=== PATIENT | male | born 1960 | race Caucasian/White ===

== ENCOUNTER 2017-01-04 09:33 | Inpatient (IN) | payer BC, MEDICARE ==
--- NOTE | 2017-01-02 15:45 | Pre-op HX & Phy Repo 2 SIG ---
DATE OF ADMISSION: 01/04/2017 HISTORY OF PRESENT ILLNESS: The patient is a 56-year-old male, in overall good health with a malfunctioning conventional Michelle ileostomy with recurring episodes of small-bowel obstruction and severe difficulty maintaining a seal with his appliance. The patient has a past history of ulcerative colitis and in 1992, underwent proctocolectomy with ileostomy with finding of carcinoma. In 1994, he underwent conversion to a Cadena type of Kock pouch continent ileostomy and has had several revisions. 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 At surgery on 02/02/2016, he was found to have severe extensive adhesions with a chronically severely inflamed pouch with surgery requiring 2 hours just for lysis of adhesions. He underwent resection of his pouch with segmental small bowel resection and creation of a conventional ileostomy. The duration of the operation was approximately 5-1/2 hours. The patient following surgery initially did well, able to keep an appliance on for days, but then he had retraction of the superior margin of the stoma and has been hospitalized four times for small bowel obstruction. CT scans and small-bowel series have revealed obstruction very close to the stoma itself, possibly at the level of the abdominal wall just under it. 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 He rarely is able to keep the bag on for several days in a row, but often has to change it multiple times in the same day. He is scheduled to undergo laparotomy with either revision of his ileostomy and possible relocation or takedown of the ileostomy and creation of another Cadena continent ileostomy. OPERATIONS: In addition to the above, he has had surgery for fracture of the spine. MEDICATIONS: Nexium 20 mg daily. ALLERGIES: Penicillin. PHYSICAL EXAMINATION: He is 6 feet 1 inch, 213 pounds. He is arriving from out of town and will be examined upon arrival and dictated separately. IMPRESSION: 1. Malfunctioning ileostomy with retraction and recurring episodes of small-bowel obstruction. 2. History of ulcerative colitis. 3. Status post multiple abdominal operations. 3.1. Proctocolectomy and Michelle ileostomy including resection of carcinoma in 1992. 3.2. Cadena continent ileostomy in 1994. 3.3. Repair of Cadena pouch slipped valve in 1994. 3.4. Repair of Cadena pouch stoma stricture in 1994. 3.5. Repair of Cadena pouch slipped valve in 1998. 3.6. Repair of Cadena pouch slipped valve in 2006. 3.7. Laparotomy with extensive lysis of adhesions and resection of Cadena pouch and segmental small bowel resection and creation of Michelle ileostomy 02/02/2016. DISCUSSION: The patient will be admitted to undergo insertion of a dual lumen PICC line, intravenous hydration during a bowel prep, preoperative intravenous antibiotics, and subcutaneous heparin. He will undergo laparotomy with either revision of his ileostomy and possible relocation, or creation of a new Cadena pouch. I have had a full discussion with the patient, which I will repeat when he arrives from out of town regarding his condition, his options, and the risks of surgery including bleeding, infection, injury to adjacent structures or organs, recurrent difficulties with conventional ileostomy or continent ileostomy, etc. Eber Hawkins M.D. DR: RAMONITA JOB#: [id number] CC: MARC
[~2017-01-04] VITALS: Ht 182.9 cm; Wt 97.5 kg
[~2017-01-04 09:33] MED LIST: NEXIUM40 MG ORAL
[2017-01-04 10:00] VITALS: BP 126/92
[2017-01-04] MEDS ORDERED: Zolpidem 5mg tab ORAL PRN (10:15)
--- NOTE | 2017-01-04 11:00 | General Progress Note ---
Progress Note Progress Note H&P dictated. Weight 213 lbs - stable. Full discussion re options of revision of existing conventional ileostomy and release of recurring obstructions, vs. creation of another Cadena Continent Ileostomy BCIR pouchj. Plan: Surgery in AM Bowel prep, PIC line, IV hydration, IV antibiotics, SQ heparin ORI SEVERINO Jan 04, 2017 11:00
[2017-01-04 11:15] LABS: BASOPHILS % (AUTO) 1.6 % (0.0-2.0); EOSINOPHILS % (AUTO) 1.5 % (0.0-3.0); MEAN CORPUSCULAR HEMOGLOBIN 28.5 PG (27.0-31.0); MEAN CORPUSCULAR HGB CONC 31.3 G/DL (32.0-36.0); MEAN CORPUSCULAR VOLUME 91 FL (80-99); MEAN PLATELET VOLUME 7.6 FL (6.5-10.1); MONOCYTES % (AUTO) 8.8 % (1.0-10.0); NEUTROPHILS % (AUTO) 74.1 % (45.0-75.0); PLATELET COUNT 185 K/UL (150-450); RED BLOOD COUNT 5.57 M/UL (4.70-6.10); RED CELL DISTRIBUTION WIDTH 11.4 % (11.6-14.8); WHITE BLOOD COUNT 7.4 K/UL (4.8-10.8)
[2017-01-04 11:25] LABS: INR 0.9 (0.9-1.1); PROTHROMBIN TIME 9.9 SEC (9.30-11.50)
[2017-01-04 11:33] LABS: ALANINE AMINOTRANSFERASE 104 U/L (12-78); ALBUMIN/GLOBULIN RATIO 0.8 (1.0-2.7); ANION GAP 8 mmol/L (5-15); ASPARTATE AMINO TRANSFERASE 70 U/L (15-37); CALCIUM 8.9 MG/DL (8.5-10.1); CARBON DIOXIDE 26 MMOL/L (21-32); CHLORIDE 105 MMOL/L (98-107); CREATININE 1.3 MG/DL (0.55-1.30); GLOMERULAR FILTRATION RATE 57.1 mL/min (>60); POTASSIUM 4.1 MMOL/L (3.5-5.1); SODIUM 139 MMOL/L (136-145); TOTAL PROTEIN 8.3 G/DL (6.4-8.2)
--- NOTE | 2017-01-04 11:41 | Diagnostic Imaging Report ---
Indication: Dyspnea Comparison: None A single view chest radiograph was obtained. Findings: Cardiomediastinal appearance is within normal limits for age. Pulmonary vascularity is appropriate. The diaphragmatic contour is smooth and costophrenic angles are sharp. No pleural effusions are identified. The bones are unremarkable. Impression: No acute findings
[2017-01-04 11:47] LABS: FERRITIN 88 NG/ML (8-388)
[2017-01-04 12:00] VITALS: BP 150/87
[2017-01-04 12:02] LABS: IRON 68 ug/dL (50-175); TOTAL IRON BINDING CAPACITY 448 ug/dL (250-450)
[2017-01-04] MEDS: Neomycin Sulfate 500mg Tab ORAL SCH ×3 (12:03→21:30)
[2017-01-04] MEDS ORDERED: D5 1/2NS w/KCl 20mEq 1,000 ML IV SCH (12:30)
[2017-01-04] MEDS ORDERED: Heparin 2000 units/Ns 1000ml INJ ONE (13:00)
[2017-01-04] MEDS ORDERED: Vitamin B12 1000mcg/ml Inj IM ONE (13:00)
[2017-01-04] MEDS ORDERED: Lidocaine 1% Plain 30 ml INJ ONE (13:00)
--- NOTE | 2017-01-04 13:36 | Anethesia Preoperative Eval ---
Anesthesia Pre-op PMH/ROS General Date of Evaluation: Jan 04, 2017 Time of Evaluation: 13:32 Anesthesiologist: Lary ASA Score: ASA 3 Mallampati Score Class I : Soft palate, uvula, fauces, pillars visible Class II: Soft palate, uvula, fauces visible Class III: Soft palate, base of uvula visible Class IV: Only hard plate visible Mallampati Classification: Class I Surgeon: Shruthi Diagnosis: Malfxn Cadena Continent Ileostomy Surgical Procedure: Revision Cadena Coninent Ileostomy Anesthesia History: none Family History: no anesthesia problems Allergies: Coded Allergies: PENICILLINS (Verified Allergy, Intermediate, ITCH, 08/01/12) Medications: see eMAR Past Medical History Cardiovascular: Reports: HTN Gastrointestinal/Genitourinary: Reports: other - Ucerative Colitis Hematology/Immune: Reports: other - Colorectal CA 91 Musculoskeletal/Integumentary: Reports: other - Spine FX 98, [facility] PSxH Narrative: 1. Malfunctioning ileostomy with retraction and recurring episodes of small-bowel obstruction. 2. History of ulcerative colitis. 3. Status post multiple abdominal operations. 3.1. Proctocolectomy and Michelle ileostomy including resection of carcinoma in 1992. 3.2. Cadena continent ileostomy in 1994. 3.3. Repair of Cadena pouch slipped valve in 1994. 3.4. Repair of Cadena pouch stoma stricture in 1994. 3.5. Repair of Cadena pouch slipped valve in 1998. 3.6. Repair of Cadena pouch slipped valve in 2006. 3.7. Laparotomy with extensive lysis of adhesions and resection of Cadena pouch and segmental small bowel resection and creation of Michelle ileostomy 02/02/2016. Anesthesia Pre-op Phys. Exam Physician Exam Last Vital Signs Date Time Temp Pulse Resp B/P (MAP) Pulse Ox O2 Delivery O2 Flow Rate FiO2 01/04/17 12:00 97.7 76 20 150/87 98 Room Air Constitutional: NAD Neurologic: CN 2-12 intact Cardiovascular: RRR Respiratory: CTA Gastrointestinal: S/NT/ND Airway Exam Mallampati Score: Class II MO: full ROM: full Teeth: intact Anesthesia Pre-op A/P Labs Hematology Test 01/04/17 10:45 White Blood Count 7.4 K/UL (4.8-10.8) Red Blood Count 5.57 M/UL (4.70-6.10) Hemoglobin 15.9 G/DL (14.2-18.0) Hematocrit 50.9 % (42.0-52.0) Mean Corpuscular Volume 91 FL (80-99) Mean Corpuscular Hemoglobin 28.5 PG (27.0-31.0) Mean Corpuscular Hemoglobin Concent 31.3 G/DL (32.0-36.0) L Red Cell Distribution Width 11.4 % (11.6-14.8) L Platelet Count 185 K/UL (150-450) Mean Platelet Volume 7.6 FL (6.5-10.1) Neutrophils (%) (Auto) 74.1 % (45.0-75.0) Lymphocytes (%) (Auto) 14.0 % (20.0-45.0) L Monocytes (%) (Auto) 8.8 % (1.0-10.0) Eosinophils (%) (Auto) 1.5 % (0.0-3.0) Basophils (%) (Auto) 1.6 % (0.0-2.0) Coagulation Test 01/04/17 10:45 Prothrombin Time 9.9 SEC (9.30-11.50) Prothromb Time International Ratio 0.9 (0.9-1.1) Activated Partial Thromboplast Time 28 SEC (23-33) Chemistry Test 01/04/17 10:45 Sodium Level 139 MMOL/L (136-145) Potassium Level 4.1 MMOL/L (3.5-5.1) Chloride Level 105 MMOL/L (98-107) Carbon Dioxide Level 26 MMOL/L (21-32) Anion Gap 8 mmol/L (5-15) Blood Urea Nitrogen 14 mg/dL (7-18) Creatinine 1.3 MG/DL (0.55-1.30) Estimat Glomerular Filtration Rate 57.1 mL/min (>60) Glucose Level 107 MG/DL (74-106) H Calcium Level 8.9 MG/DL (8.5-10.1) Iron Level 68 ug/dL (50-175) Total Iron Binding Capacity 448 ug/dL (250-450) Percent Iron Saturation 15 % (15-50) Unsaturated Iron Binding 380 ug/dL (112-346) H Ferritin 88 NG/ML (8-388) Total Bilirubin 0.4 MG/DL (0.2-1.0) Aspartate Amino Transf (AST/SGOT) 70 U/L (15-37) H Alanine Aminotransferase (ALT/SGPT) 104 U/L (12-78) H Alkaline Phosphatase 124 U/L (46-116) H Total Protein 8.3 G/DL (6.4-8.2) H Albumin 3.7 G/DL (3.4-5.0) Globulin 4.6 g/dL Albumin/Globulin Ratio 0.8 (1.0-2.7) L Vitamin B12 Level 189 PG/ML (193-986) L Risk Assessment & Plan Assessment: ASA 3 Plan: GA Status Change Before Surgery: No Pre-Antibiotics Drug: Arnaud Dyer MD Jan 04, 2017 13:36
[2017-01-04 14:06] LABS: APPEARANCE,URINE CLEAR; KETONES,URINE NEGATIVE (NEGATIVE); LEUKOCYTE ESTERASE ,URINE 1+ (NEGATIVE); NITRITE,URINE NEGATIVE (NEGATIVE); PH,URINE 5 (4.5-8.0); PROTEIN,URINE NEGATIVE (NEGATIVE); UROBILINOGEN,URINE NORMAL MG/DL (0.0-1.0)
[2017-01-04 14:16] LABS: BACTERIA,URINE OCCASIONAL /HPF; RBC,URINE 0-2 /HPF (0 - 0)
[2017-01-04 16:00] VITALS: BP 105/77
[2017-01-04] MEDS: D5 1/2NS w/KCl 20mEq 1,000 ML IV SCH (17:55)
--- NOTE | 2017-01-04 19:00 | Pre-op HX & Phy Repo 2 SIG ---
DATE OF ADMISSION: 01/04/2017 HISTORY: The patient has now arrived from out of town. Please see previously dictated history. PHYSICAL EXAMINATION: GENERAL: He is well developed and well nourished, in no distress. He is 6 foot 1 inch, 213 pounds. HEENT: Within normal limits. LUNGS: Clear. HEART: Regular rhythm. BREASTS: Without masses. ABDOMEN: Soft. He has a long midline scar from epigastrium to the pubis. The conventional Michelle ileostomy is high in the right lower quadrant and retracted with inflammation of the pushpa-stomal skin GENITOURINARY: Testes and scrotum within normal limits. RECTAL: Status post proctectomy. EXTREMITIES: Without edema. Pulses 3+ femoral to pedal bilateral NEUROLOGIC: Physiologic. IMPRESSION: 1. Malfunctioning ileostomy with retraction and recurring episodes of small-bowel obstruction. 2. History of ulcerative colitis. 3. Status post multiple abdominal operations. 3.1. Proctocolectomy and Michelle ileostomy including resection of colon carcinoma in 1992. 3.2. Cadena continent ileostomy in 1994. 3.3. Repair of Cadena pouch slipped valve in 1994. 3.4. Repair of Cadena pouch stoma stricture in 1994. 3.5. Repair of Cadena pouch slipped valve in 1998. 3.6. Repair of Cadena pouch slipped valve in 2006. 3.7. Laparotomy with extensive lysis of adhesions and resection of failed Cadena pouch and segmental small bowel resection and creation of Michelle ileostomy January 2016 DISCUSSION: I have had a full discussion with the patient regarding the nature of his condition of malfunctioning conventional ileostomy and recurrent small bowel obstruction with diagnostic studies revealing the site of obstruction to be at or very near to the ileostomy itself. The patient understands. He will undergo laparotomy with either revision and possible relocation of the ileostomy or takedown of the ileostomy and creation of another Cadena continent ileostomy. I have discussed the indications to perform the pouch including an adequate amount of small bowel and normal small bowel. I have discussed the risks of surgery including bleeding, infection, injury to adjacent structures or organs, recurrent difficulties with either the conventional ileostomy or with the Cadena pouch and all questions have been answered. He understands and agrees to proceed. Eber Hawkins M.D. DR: ELEAZAR JOB#: [id number] CC: MARC
[2017-01-04 20:00] VITALS: BP 120/77
[2017-01-04] MEDS: Pantoprazole Inj IVP SCH (21:30)
[2017-01-05] VITALS (18 sets, daily range): BP systolic 123–150; BP diastolic 68–96
[2017-01-05] MEDS: D5 1/2NS w/KCl 20mEq 1,000 ML IV SCH (04:04)
[2017-01-05] MEDS ORDERED: Heparin 5000 units/ml inj SUBQ ONE (08:00)
[2017-01-05] MEDS: Pantoprazole Inj IVP SCH (08:24)
--- NOTE | 2017-01-05 08:46 | General Progress Note ---
Progress Note Progress Note Hgb 15.9 Ferritin 88(8-388) Iron 68 (50-175) B12 189 (193-986) Imp. Vitamin B12 deficiency Low normal serum iron and ferritin Plan: 1000mcg Vitamin B12 given IM ORI SEVERINO Jan 05, 2017 08:46
--- NOTE | 2017-01-05 08:48 | Pre-Procedure Note/Attestation ---
Pre-Procedure Note/Attestation Complete Prior to Procedure Planned Procedure: not applicable Procedure Narrative: laparotomy with revision of ileostomy, possible Cadena Continent Ileostomy Indications for Procedure Pre-Operative Diagnosis: retracted Michelle ileostomy and recurring small bowel obstruction Attestation I attest that I discussed the nature of the procedure; its benefits; risks and complications; and alternatives (and the risks and benefits of such alternatives ), prior to the procedure, with the patient (or the patient's legal screening representative). I attest that, if there was a reasonable possibility of needing a blood transfusion, the patient (or the patient's legal screening representative) was given the [facility] standardized written summary, pursuant to the [place] Blood Safety Act ([place] Health and Safety Code # 1645, as amended). I attest that I re-evaluated the patient just prior to the surgery and that there has been no change in the patient's H&P, except as documented below:none ORI SEVERINO Jan 05, 2017 08:48
[2017-01-05] MEDS ORDERED: Succinylcholine 20mg/ml 10ml vial ONE (09:45)
[2017-01-05] MEDS ORDERED: Sterile Water Irrig 1000ml IRRIG ONE (09:45)
[2017-01-05] MEDS ORDERED: Midazolam 2mg/2ml Inj ONE (09:45)
[2017-01-05] MEDS ORDERED: Morphine Sulfate 10mg/ml Inj ONE (09:45)
[2017-01-05] MEDS ORDERED: Propofol 200mg/20ml IV ONE (09:45)
[2017-01-05] MEDS ORDERED: NS Irrig 1000ml ONE (09:45)
[2017-01-05] MEDS ORDERED: fentaNYL 100 mcg/2 mL IV ONE (09:45)
[2017-01-05] MEDS ORDERED: Ketorolac 30mg Inj ONE (09:45)
[2017-01-05] MEDS ORDERED: Metoclopramide 10mg/2ml Inj ONE (09:45)
[2017-01-05] MEDS ORDERED: Glycopyrrolate 0.2mg/ml 1ml Vial ONE (09:45)
[2017-01-05] MEDS ORDERED: LR 1000ml ONE (09:45)
[2017-01-05] MEDS ORDERED: LR 1000ml 1,000 ML IVLG SCH (10:11)
[2017-01-05] MEDS ORDERED: Metoclopramide 10mg/2ml Inj IVP PRN (10:15)
[2017-01-05] MEDS ORDERED: DiphenhydrAMINE 50mg/ml Inj IVP PRN (10:15)
[2017-01-05] MEDS ORDERED: Ketorolac 30mg Inj IV PRN ×2 (10:15→15:30)
[2017-01-05] MEDS ORDERED: fentaNYL 100 mcg/2 mL IV PRN (10:15)
[2017-01-05] MEDS ORDERED: Midazolam 2mg/2ml Inj IVP PRN (10:15)
[2017-01-05] MEDS ORDERED: Acetaminophen (Non formulary) 100 ML IV ONE (10:30)
[2017-01-05] MEDS ORDERED: Zemuron 50mg/5ml Inj IV ONE (11:20)
[2017-01-05] MEDS ORDERED: Bacitracin 50000 Units Vial ONE (11:20)
--- NOTE | 2017-01-05 13:08 | Anethesia Preoperative Eval ---
Anesthesia Pre-op PMH/ROS General Date of Evaluation: Jan 05, 2017 Time of Evaluation: 09:45 Anesthesiologist: ADOLFO ASA Score: ASA 2 Mallampati Score Class I : Soft palate, uvula, fauces, pillars visible Class II: Soft palate, uvula, fauces visible Class III: Soft palate, base of uvula visible Class IV: Only hard plate visible Mallampati Classification: Class II Surgeon: Shruthi Diagnosis: non functioning ileostomy Surgical Procedure: EX-LAP Anesthesia History: none Allergies: Coded Allergies: PENICILLINS (Verified Allergy, Intermediate, ITCH, 08/01/12) Medications: see eMAR Anesthesia Pre-op Phys. Exam Physician Exam Last Vital Signs Date Time Temp Pulse Resp B/P (MAP) Pulse Ox O2 Delivery O2 Flow Rate FiO2 01/05/17 08:00 98.3 74 20 125/74 100 Room Air Constitutional: NAD Neurologic: CN 2-12 intact Cardiovascular: RRR Respiratory: CTA Gastrointestinal: S/NT/ND Airway Exam Mallampati Score: Class II MO: full ROM: full Teeth: intact Anesthesia Pre-op A/P Risk Assessment & Plan Plan: GA Pre-Antibiotics Given Within 1 Hr of Incision: Darwin Carmichael M.D. Jan 05, 2017 13:08
--- NOTE | 2017-01-05 13:10 | Immediate Post-Op Evaluation ---
Immediate Post-Op Evalulation Immediate Post-Op Evalulation Procedure: EXLAP Date of Evaluation: Jan 05, 2017 Time of Evaluation: 15:00 IV Fluids: 1000 Blood Products: 0 Estimated Blood Loss: 0 Urinary Output: 0 Blood Pressure Systolic: 118 Blood Pressure Diastolic: 63 Pulse Rate: 78 Respiratory Rate: 15 O2 Sat by Pulse Oximetry: 99 Temperature (Fahrenheit): 98 Pain Score (1-10): 0 Nausea: No Vomiting: No Patient Status: awake, reacts, patent, extubated Hydration Status: adequate Given Within 1 Hr of Incision: Darwin Carmichael M.D. Jan 05, 2017 13:10
--- NOTE | 2017-01-05 13:11 | 48 Hour Post Anesthesia Eval ---
Post Anesthesia Evaluation Procedure: EXLAP Date of Evaluation: Jan 07, 2017 Time of Evaluation: 08:00 Blood Pressure Systolic: 123 0: 65 Pulse Rate: 71 Respiratory Rate: 16 Temperature (Fahrenheit): 98 O2 Sat by Pulse Oximetry: 99 Airway: patent Nausea: No Vomiting: No Hydration Status: adequate Mental Status/LOC: patient returned to baseline Follow-up care needed: patient intructions given Darwin Freeman M.D. Jan 05, 2017 13:11
[2017-01-05] MEDS ORDERED: Surgicel 4in x 8in TOPIC ONE ×2 (13:37→14:47)
--- NOTE | 2017-01-05 13:51 | Diagnostic Imaging Report ---
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 The right upper extremity was prepped with alcohol. All elements of maximal sterile barrier technique were followed including usage of a cap, mask, sterile gown, sterile gloves, hand hygiene and a large sterile sheet. Sonographic evaluation of the upper extremity was performed demonstrating a patent and compressible basilic vein. Access was obtained under real-time ultrasound guidance (with utilization of sterile gel and sterile probe cover) and digital image was saved and archived. An .018 wire was introduced. Needle exchanged for a 5 Panamanian peel-away sheath. Measurements were obtained. A 5 Panamanian dual-lumen Power PICC line catheter was cut to 40 cm and introduced over the wire. Peel-away sheath and wire were removed.Catheter was secured to the skin using 2-0 Prolene suture. Both ports aspirate and flush easily. Fluoroscopic Images show distal tip in the superior vena cava. Total fluoroscopic time 0.3 minutes. Impression: Successful placement of an upper extremity PICC line catheter
[2017-01-05] MEDS ORDERED: Naloxone 0.4mg/ml Inj IVP PRN (15:30)
[2017-01-05] MEDS ORDERED: PCA HYDROmorphone 1mg/ml 30 ML IV PRN (15:30)
[2017-01-05] MEDS ORDERED: Rate Change PCA 1 Each MISC PRN (15:30)
[2017-01-05] MEDS ORDERED: LORazepam 1mg tab SL PRN (15:30)
[2017-01-05] MEDS ORDERED: Acetaminophen 650mg/20.3ml GT PRN (15:30)
--- NOTE | 2017-01-05 15:31 | Brief Operative Note ---
Immediate Post Operative Note Operative Note Pre-op Diagnosis: retracted Michelle ileostomy and recurring small bowel obstruction Procedure: laparotomy with resection and relocation of Michelle ileostomy and enteroenterostomy Post-op Diagnosis: same Post-op Diagnosis: same as pre-op Findings: consistent w/pre-op dx studies Surgeon: dianne Insurance Agent: brian Anesthesiologist: long Anesthesia: general Specimen: yes - ileostomy and small bowel segment Complications: none Condition: stable Fluids: see anesthesia record Estimated Blood Loss: volume - 100ml Drains: none Implant(s) used?: No ORI SEVERINO Jan 05, 2017 15:31
[2017-01-05] MEDS: Hydromorphone 0.5mg/0.5ml inj IVP PRN ×2 (15:51→16:09)
[2017-01-05] MEDS ORDERED: PCA Education Pamphlet MISC ONE (17:00)
[2017-01-05] MEDS ORDERED: DiphenhydrAMINE 50mg/ml Inj IVP ONE (17:00)
[2017-01-05] MEDS: PCA shift volume MISC SCH (19:00)
[2017-01-05] MEDS: D5 1/4NS w/KCl 20mEq 1,000 ML IV SCH (20:00)
[2017-01-05] MEDS: DiphenhydrAMINE 50mg/ml Inj IVP PRN (22:54)
[2017-01-06 00:22] VITALS: BP 125/80
--- NOTE | 2017-01-06 02:15 | Operative Note - Dictated ---
DATE OF OPERATION: 01/05/2017 SURGEON: Eber Hawkins M.D. PASTRY COOK SURGEON: Lorenzo Ward M.D. ANESTHESIOLOGIST: Darwin Freeman M.D. TYPE OF ANESTHESIA: General endotracheal. PREOPERATIVE DIAGNOSES: 1. Ileostomy retraction and recurring episodes of small bowel obstruction 2. History of ulcerative colitis. 3. Status post multiple abdominal operations. 3.1. Proctocolectomy and Michelle ileostomy including resection of colon cancer in 1992. 3.2. Cadena continent ileostomy in 1994. 3.3. Repair of Cadena continent ileostomy slipped valve in 1994. 3.4. Repair of Cadena pouch stoma stricture in 1994. 3.5. Repair of Cadena pouch slipped valve in 1998. 3.6. Repair of Cadena pouch slipped valve in 2006. 3.7. Laparotomy with extensive lysis of adhesions and resection of failed Cadena pouch with segmental small bowel resection and creation of Michelle ileostomy January 2016 POSTOPERATIVE DIAGNOSES: 1. Ileostomy retraction and recurring episodes of small bowel obstruction 2. History of ulcerative colitis. 3. Status post multiple abdominal operations. 3.1. Proctocolectomy and Michelle ileostomy including resection of colon cancer in 1992. 3.2. Cadena continent ileostomy in 1994. 3.3. Repair of [place] continent ileostomy slipped valve in 1994. 3.4. Repair of Cadena pouch stoma stricture in 1994. 3.5. Repair of Cadena pouch slipped valve in 1998. 3.6. Repair of Cadena pouch slipped valve in 2006. 3.7. Laparotomy with extensive lysis of adhesions and resection of failed Cadena pouch with segmental small bowel resection and creation of Michelle ileostomy January 2016 OPERATION PERFORMED: 1. Takedown, excision and relocation of ileostomy to the left side of abdomen 2. Enteroenterostomy. DESCRIPTION OF PROCEDURE: The patient was taken to the operating room and under general endotracheal anesthesia with sequential compression device stockings and Goddard catheter in place and having received preoperative intravenous antibiotics and subcutaneous heparin, the patient was prepped and draped in the usual fashion. Initially, the stoma in the right side of the abdomen was covered with antibiotic soaked lap sponge. It was retracted along the superior margin and the peristomal skin was severely irritated. Previous midline incision was reopened from the upper epigastrium to the pubis. There were severe diffuse adhesions throughout the abdominal cavity and a prolonged lysis of adhesions was performed. The ligament of Treitz was identified and the bowel was traced to the ileostomy segment. There was no obstruction at the ileostomy itself, but approximately 2 feet proximal there was a narrowed area and 6 inches proximal to that another severely narrowed area. I introduced a 28-Wolof Goddard through the ileostomy and was able to manipulate it through the most distal narrowing, but not the most proximal. The stoma itself was dismantled with a transversely oriented elliptical incision bringing it into the abdominal cavity. In order to relieve any possible future obstruction from the narrowed areas, I placed the bowel loops side by side just proximal to the most proximal narrowed area and just distal to the most distal area and with two enterotomies and the REA 75, I did an enteroenterostomy. The enterotomy was closed with a linear stapler 60. This would prevent any further obstruction. I considered making another Cadena continent ileostomy, but the mesentery was so thick and there was so much scarring and shortening of the mesentery, it would not be possible to create a pouch with an intussuscepted nipple valve. Accordingly at an appropriate location in the upper portion of the left lower quadrant, I excised a circular disk of skin and with a cruciate incision in the fascia made a generous three fingerbreadth abdominal wall hiatus. I had to resect another segment of bowel near the ileostomy in order to have a mobile loop of bowel that could be brought out as an end ileostomy. Mesentery was divided throughout the procedure and ligated with 2-0 and #0 silk and then the ilium brought through the abdominal wall. It was somewhat dusky and I brought it back into the abdomen and did additional mobilization and brought a longer segment up and matured in a typical Michelle ileostomy with interrupted 2-0 chromic sutures. A very nice nipple bud was created. Most of it appeared viable and perfused and one area appeared somewhat congested, but not ischemic. The entire abdomen was inspected and hemostasis secured and no retained objects were identified. I decided not to do a decompressive catheter gastrostomy because additional dissection would be required and there were no anastomoses to protect. Throughout the procedure the abdominal wall edges were protected with antibiotic soaked lap sponges. The prior ileostomy site in the right side of the abdomen was closed with interrupted inverted [id number] #1 Prolene on the abdominal wall fascia and then the skin closed with interrupted 2-0 nylon vertical mattress sutures. The midline incision was closed with continuous #1 Prolene starting at both ends and inverting the knots. Additional antibiotic irrigation was used and the skin closed with isis. An ileostomy appliance was placed followed by dry sterile dressing. Final sponge and needle counts were correct. Duration of the operation was just over four hours. Estimated blood loss was 100 mL. The patient tolerated the procedure well and left the operating room in stable condition. Eber Hawkins M.D. DR: Bibiana JOB#: [id number] CC: MARC
[2017-01-06 04:00] VITALS: BP 134/83
[2017-01-06] MEDS: D5 1/4NS w/KCl 20mEq 1,000 ML IV SCH ×4 (04:00→19:45)
[2017-01-06] MEDS: DiphenhydrAMINE 50mg/ml Inj IVP PRN ×4 (04:27→21:14)
[2017-01-06 05:47] LABS: MEAN CORPUSCULAR HEMOGLOBIN 31.2 PG (27.0-31.0); MEAN CORPUSCULAR HGB CONC 34.7 G/DL (32.0-36.0); MEAN CORPUSCULAR VOLUME 90 FL (80-99); MEAN PLATELET VOLUME 7.8 FL (6.5-10.1); PLATELET COUNT 222 K/UL (150-450); RED BLOOD COUNT 5.66 M/UL (4.70-6.10); RED CELL DISTRIBUTION WIDTH 11.5 % (11.6-14.8); WHITE BLOOD COUNT 18.9 K/UL (4.8-10.8)
[2017-01-06] MEDS: Dyna-Hex 2% Top Sol 2oz TOPIC SCH ×2 (05:56→19:54)
[2017-01-06] MEDS: PCA shift volume MISC SCH ×2 (07:00→19:26)
[2017-01-06 07:07] LABS: ANION GAP 10 mmol/L (5-15); CALCIUM 8.1 MG/DL (8.5-10.1); CARBON DIOXIDE 23 MMOL/L (21-32); CHLORIDE 106 MMOL/L (98-107); CREATININE 1.4 MG/DL (0.55-1.30); GLOMERULAR FILTRATION RATE 52.4 mL/min (>60); POTASSIUM 4.6 MMOL/L (3.5-5.1); SODIUM 139 MMOL/L (136-145)
[2017-01-06 08:00] VITALS: BP 131/79
[2017-01-06] MEDS ORDERED: Naloxone 0.4mg/ml Inj IVP PRN (08:23)
[2017-01-06] MEDS ORDERED: Rate Change PCA 1 Each MISC PRN (08:30)
--- NOTE | 2017-01-06 08:39 | General Progress Note ---
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 chest clear with decreased expansion Cor - reg rhythm Abdomen distended, midline incision clean, RLQ incision with swelling and some oozing LLQ ileostomy is edematous and slightly dusky - patent, with areas that are pink. New appliance placed Urine 450/12 hrs Ileo 75 serosang WBC 18,900 Hgb up 17.6 BUN 15 Cr 1.4 Imp. Slight hemoconcentration Ileus Atelectasis Plan: NPO increase IV fluids mobilize out of bed f/u labs in AM follow stoma closely ORI SEVERINO Jan 06, 2017 08:39
[2017-01-06] MEDS: Pantoprazole Inj IVP SCH (08:40)
[2017-01-06] MEDS ORDERED: Tubing IV Secondary IV ONE (09:41)
[2017-01-06 09:54] LABS: BAND NEUTROPHILS % (MANUAL) 0 % (0-8); BASOPHILS % (MANUAL) 0 % (0-2); EOSINOPHILS % (MANUAL) 0 % (0-3); LYMPHOCYTES % (MANUAL) 4 % (20-45); NEUTROPHILS % (MANUAL) 91 % (45-75); PLATELET ESTIMATE ADEQUATE; PLATELET MORPHOLOGY NORMAL; TOTAL CELLS COUNTED 100
[2017-01-06 12:00] VITALS: BP 116/73
[2017-01-06] MEDS ORDERED: PCA HYDROmorphone 1mg/ml 30 ML IV PRN (15:30)
[2017-01-06 16:00] VITALS: BP 130/86
[2017-01-06 18:02] LABS: BASOPHILS % (AUTO) 0.7 % (0.0-2.0); EOSINOPHILS % (AUTO) 0.1 % (0.0-3.0); LYMPHOCYTES % (AUTO) 7.9 % (20.0-45.0); MEAN CORPUSCULAR HEMOGLOBIN 30.2 PG (27.0-31.0); MEAN CORPUSCULAR VOLUME 92 FL (80-99); MEAN PLATELET VOLUME 7.4 FL (6.5-10.1); MONOCYTES % (AUTO) 11.7 % (1.0-10.0); NEUTROPHILS % (AUTO) 79.6 % (45.0-75.0); PLATELET COUNT 153 K/UL (150-450); RED BLOOD COUNT 4.67 M/UL (4.70-6.10); RED CELL DISTRIBUTION WIDTH 11.4 % (11.6-14.8); WHITE BLOOD COUNT 14.1 K/UL (4.8-10.8)
[2017-01-06 20:48] VITALS: BP 136/78
[2017-01-07 00:33] VITALS: BP 111/74
[2017-01-07] MEDS: DiphenhydrAMINE 50mg/ml Inj IVP PRN ×4 (00:49→22:46)
[2017-01-07] MEDS: D5 1/4NS w/KCl 20mEq 1,000 ML IV SCH ×4 (02:10→22:22)
[2017-01-07 04:00] VITALS: BP 110/72
[2017-01-07 04:51] LABS: BASOPHILS % (AUTO) 0.5 % (0.0-2.0); EOSINOPHILS % (AUTO) 0.7 % (0.0-3.0); LYMPHOCYTES % (AUTO) 10.6 % (20.0-45.0); MEAN CORPUSCULAR HEMOGLOBIN 30.1 PG (27.0-31.0); MEAN CORPUSCULAR HGB CONC 33.5 G/DL (32.0-36.0); MEAN CORPUSCULAR VOLUME 90 FL (80-99); MEAN PLATELET VOLUME 7.4 FL (6.5-10.1); MONOCYTES % (AUTO) 13.2 % (1.0-10.0); NEUTROPHILS % (AUTO) 74.9 % (45.0-75.0); PLATELET COUNT 154 K/UL (150-450); RED BLOOD COUNT 4.69 M/UL (4.70-6.10); RED CELL DISTRIBUTION WIDTH 11.1 % (11.6-14.8); WHITE BLOOD COUNT 10.1 K/UL (4.8-10.8)
[2017-01-07 05:37] LABS: ALANINE AMINOTRANSFERASE 51 U/L (12-78); ALBUMIN/GLOBULIN RATIO 0.7 (1.0-2.7); ANION GAP 5 mmol/L (5-15); ASPARTATE AMINO TRANSFERASE 32 U/L (15-37); CARBON DIOXIDE 27 MMOL/L (21-32); CHLORIDE 105 MMOL/L (98-107); CREATININE 1.1 MG/DL (0.55-1.30); GLOMERULAR FILTRATION RATE > 60 mL/min (>60); POTASSIUM 3.7 MMOL/L (3.5-5.1); SODIUM 137 MMOL/L (136-145); TOTAL PROTEIN 6.4 G/DL (6.4-8.2)
[2017-01-07] MEDS: PCA shift volume MISC SCH ×2 (07:14→19:02)
[2017-01-07 08:00] VITALS: BP 116/65
[2017-01-07] MEDS: Pantoprazole Inj IVP SCH (08:20)
--- NOTE | 2017-01-07 09:52 | General Progress Note ---
Progress Note Progress Note AVSS Ambulates in hallways with assistance. Using PROPERTY ASSESSMENT MONITOR intermittently Abdomen distended, soft, incisions clean. Stoma is now beefy red and still edematous Urine 1000cc/24 hours Ileostomy - scant serosang WBC down 10,100 Hgb 14.1 (stable) BUN 10 Cr down 1.1 Albumin 2.7 Imp. Ileus Plan: continue npo - may need TPN soon continue Goddard (pelvic dissection) ORI SEVERINO Jan 07, 2017 09:52
[2017-01-07 12:00] VITALS: BP 98/63
[2017-01-07] MEDS ORDERED: Rate Change PCA 1 Each MISC PRN (12:15)
[2017-01-07] MEDS ORDERED: Naloxone 0.4mg/ml Inj IVP PRN (12:15)
[2017-01-07] MEDS ORDERED: PCA HYDROmorphone 1mg/ml 30 ML IV PRN (15:30)
[2017-01-07 16:00] VITALS: BP 105/60
[2017-01-07] MEDS: PCA HYDROmorphone 1mg/ml 30 ML IV PRN (17:05)
[2017-01-07] MEDS: Dyna-Hex 2% Top Sol 2oz TOPIC SCH (19:34)
[2017-01-07 19:45] VITALS: BP 132/77
[2017-01-08 04:00] VITALS: BP 114/95
[2017-01-08] MEDS: D5 1/4NS w/KCl 20mEq 1,000 ML IV SCH ×3 (04:50→17:30)
[2017-01-08] MEDS: PCA shift volume MISC SCH ×2 (07:27→19:23)
--- NOTE | 2017-01-08 07:35 | General Progress Note ---
Progress Note Progress Note AVSS Comfortable, ambulatory Abdomen distended, soft, incisions clean, stoma beefy red with serosang output Urine 3450 Ileostomy 28 Imp. Ileus Plan: continue NPO continue Goddard (pelvic dissection + diuresing now) labs in ORI FOX Jan 08, 2017 07:35
[2017-01-08 08:00] VITALS: BP 114/68
[2017-01-08] MEDS: Pantoprazole Inj IVP SCH (08:03)
[2017-01-08] MEDS: DiphenhydrAMINE 50mg/ml Inj IVP PRN ×3 (08:07→22:39)
[2017-01-08 12:00] VITALS: BP 128/73
[2017-01-08 16:00] VITALS: BP 106/68
[2017-01-08] MEDS: PCA HYDROmorphone 1mg/ml 30 ML IV PRN (17:32)
[2017-01-08 20:00] VITALS: BP 110/72
[2017-01-08] MEDS: Dyna-Hex 2% Top Sol 2oz TOPIC SCH (21:34)
[2017-01-09] VITALS: BP 108/78
[2017-01-09] MEDS: D5 1/4NS w/KCl 20mEq 1,000 ML IV SCH ×4 (00:50→20:55)
[2017-01-09 04:00] VITALS: BP 103/67
[2017-01-09] MEDS: DiphenhydrAMINE 50mg/ml Inj IVP PRN ×3 (04:29→17:55)
[2017-01-09 06:42] LABS: BASOPHILS % (AUTO) 1.2 % (0.0-2.0); EOSINOPHILS % (AUTO) 3.3 % (0.0-3.0); LYMPHOCYTES % (AUTO) 10.6 % (20.0-45.0); MEAN CORPUSCULAR HEMOGLOBIN 31.7 PG (27.0-31.0); MEAN CORPUSCULAR VOLUME 90 FL (80-99); MEAN PLATELET VOLUME 7.1 FL (6.5-10.1); MONOCYTES % (AUTO) 12.6 % (1.0-10.0); NEUTROPHILS % (AUTO) 72.4 % (45.0-75.0); PLATELET COUNT 204 K/UL (150-450); RED CELL DISTRIBUTION WIDTH 10.7 % (11.6-14.8); WHITE BLOOD COUNT 7.6 K/UL (4.8-10.8)
[2017-01-09 06:54] LABS: ANION GAP 4 mmol/L (5-15); CALCIUM 8.7 MG/DL (8.5-10.1); CARBON DIOXIDE 31 MMOL/L (21-32); CHLORIDE 102 MMOL/L (98-107); CREATININE 1.1 MG/DL (0.55-1.30); GLOMERULAR FILTRATION RATE > 60 mL/min (>60); POTASSIUM 4.4 MMOL/L (3.5-5.1); SODIUM 137 MMOL/L (136-145)
[2017-01-09] MEDS: PCA shift volume MISC SCH ×2 (07:08→19:22)
[2017-01-09] MEDS: Pantoprazole Inj IVP SCH (08:19)
[2017-01-09 08:23] VITALS: BP 100/63
[2017-01-09] MEDS ORDERED: Naloxone 0.4mg/ml Inj IVP PRN (08:27)
[2017-01-09] MEDS ORDERED: Rate Change PCA 1 Each MISC PRN (08:30)
--- NOTE | 2017-01-09 08:32 | General Progress Note ---
Progress Note Progress Note AVSS Has burping and hiccups intermittently Abdomen still mildly distended, incisions clean. Stoma pink and still quite edematous Urine 2000 Ileostomy 390 WBC 7600 Hgb 14.6 BMP - wnl Imp. slowly resolving ileus Plan: Continue npo today d/c Flagyl WOCN evaluation ORI SEVERINO Jan 09, 2017 08:32
[2017-01-09 11:29] VITALS: BP 117/75
[2017-01-09] MEDS ORDERED: DiphenhydrAMINE 50mg/ml Inj IVP PRN ×2 (12:15)
[2017-01-09] MEDS ORDERED: Tubing IV Secondary IV ONE (14:27)
[2017-01-09 15:32] VITALS: BP 112/72
[2017-01-09] MEDS: PCA HYDROmorphone 1mg/ml 30 ML IV PRN (15:57)
[2017-01-09] MEDS: Dyna-Hex 2% Top Sol 2oz TOPIC SCH (20:00)
[2017-01-09 20:07] VITALS: BP 116/78
[2017-01-10] VITALS: BP 111/97
[2017-01-10 04:00] VITALS: BP 105/65
[2017-01-10] MEDS: D5 1/4NS w/KCl 20mEq 1,000 ML IV SCH ×4 (04:17→22:33)
[2017-01-10] MEDS: PCA shift volume MISC SCH ×2 (07:27→19:26)
[2017-01-10 08:00] VITALS: BP 108/76
--- NOTE | 2017-01-10 08:22 | General Progress Note ---
Progress Note Progress Note AVSS Feeling better. Abdomen soft, with less distention. Incisions clean, stoma pink and still edematous Urine 2000 Ileostomy 250cc overnight 12 hours Imp. 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
[2017-01-10] MEDS: Pantoprazole Inj IVP SCH (08:54)
[2017-01-10 12:00] VITALS: BP 118/77
--- NOTE | 2017-01-10 15:39 | Wound Nurse Progress Note ---
Wound RN Progress Note Wound Consult seen patient as ordered. patient was provided with ostomy teaching and care. one piece coloplast ostomy bag with clip placed patient was able to perform return demonstration with removal of current ostomy bag,cleaning site, keeping site dry, protection of surrounding skin , cut to fit ostomy was also applied by patient and was also able to properly place clip. patient did well and understood teaching. noted stoma deep red in color and surrounding skin noted red with slight masceration. made nurse aware to continue to monitor and notify MD if any further changes are noted. EVONNE FREGOSO Jan 10, 2017 15:39
[2017-01-10 16:00] VITALS: BP 112/78
[2017-01-10] MEDS: PCA HYDROmorphone 1mg/ml 30 ML IV PRN (16:05)
[2017-01-10 20:00] VITALS: BP 113/80
[2017-01-10] MEDS: Dyna-Hex 2% Top Sol 2oz TOPIC SCH (20:00)
[2017-01-10] MEDS: LORazepam 1mg tab SL PRN (22:35)
[2017-01-11 00:58] VITALS: BP 108/71
[2017-01-11 04:29] VITALS: BP 110/68
[2017-01-11] MEDS ORDERED: Rate Change PCA 1 Each MISC PRN (04:45)
[2017-01-11] MEDS ORDERED: Naloxone 0.4mg/ml Inj IVP PRN (04:45)
[2017-01-11] MEDS ORDERED: PCA HYDROmorphone 1mg/ml 30 ML IV PRN (04:45)
[2017-01-11] MEDS ORDERED: PCA shift volume MISC SCH (07:00)
[2017-01-11 08:00] VITALS: BP 115/78
[2017-01-11] MEDS ORDERED: D5 1/4NS w/KCl 20mEq 1,000 ML IV SCH (08:30)
[2017-01-11] MEDS: Pantoprazole Inj IVP SCH (08:46)
--- NOTE | 2017-01-11 11:51 | General Progress Note ---
Progress Note Progress Note AVSS Tolerated clear liquids well. Not using analgesics Abdomen soft, flat, incisions clean, stoma pink/red Urine 4000 Ileostomy 1050 Imp. Improved Plan: Full liquid diet D/C CLIENT SUPPORT COORDINATOR and IV fluids D/C urinary Goddard f/u labs in ORI FOX Jan 11, 2017 11:51
[2017-01-11 12:00] VITALS: BP 120/76
[2017-01-11] MEDS ORDERED: Norco 5mg/325mg tab ORAL PRN (12:00)
[2017-01-11 16:00] VITALS: BP 113/77
[2017-01-11] MEDS: Dyna-Hex 2% Top Sol 2oz TOPIC SCH (20:00)
[2017-01-11 20:47] VITALS: BP 117/69
[2017-01-11] MEDS: LORazepam 1mg tab SL PRN (22:50)
[2017-01-12 00:30] VITALS: BP 113/72
[2017-01-12 04:42] LABS: LYMPHOCYTES % (AUTO) 12.3 % (20.0-45.0); MEAN CORPUSCULAR HEMOGLOBIN 30.8 PG (27.0-31.0); MEAN CORPUSCULAR HGB CONC 34.5 G/DL (32.0-36.0); MEAN CORPUSCULAR VOLUME 89 FL (80-99); MEAN PLATELET VOLUME 7.3 FL (6.5-10.1); MONOCYTES % (AUTO) 10.3 % (1.0-10.0); NEUTROPHILS % (AUTO) 72.4 % (45.0-75.0); PLATELET COUNT 244 K/UL (150-450); RED BLOOD COUNT 4.85 M/UL (4.70-6.10); RED CELL DISTRIBUTION WIDTH 10.8 % (11.6-14.8); WHITE BLOOD COUNT 7.5 K/UL (4.8-10.8)
[2017-01-12 04:56] VITALS: BP 100/64
[2017-01-12 05:16] LABS: ANION GAP 9 mmol/L (5-15); CALCIUM 9.1 MG/DL (8.5-10.1); CARBON DIOXIDE 26 MMOL/L (21-32); CHLORIDE 105 MMOL/L (98-107); CREATININE 1.1 MG/DL (0.55-1.30); GLOMERULAR FILTRATION RATE > 60 mL/min (>60); POTASSIUM 3.7 MMOL/L (3.5-5.1); SODIUM 140 MMOL/L (136-145)
[2017-01-12 08:00] VITALS: BP 122/72
[2017-01-12] MEDS: Pantoprazole Inj IVP SCH (08:26)
[2017-01-12 12:00] VITALS: BP 114/70
--- NOTE | 2017-01-12 12:31 | General Progress Note ---
Progress Note Progress Note AVSS Tolerated full liquid diet. Abdomen soft, incisions clean, stoma with slightly less edema; pink Urine 1924 Ileostomy 1575 WBC 7500 Hgb 14.9 BMP - wnl Imp. Improved Plan: BCIR low residue diet F/U by ERIBERTO re new ileostomy Continue I&O ORI SEVERINO Jan 12, 2017 12:31
[2017-01-12 16:00] VITALS: BP 119/70
[2017-01-12] MEDS ORDERED: D5 1/2NS 1000ml IV ONE (18:04)
[2017-01-12] MEDS ORDERED: Tubing IV Secondary IV ONE (18:04)
[2017-01-12 20:00] VITALS: BP 121/77
[2017-01-12] MEDS ORDERED: LORazepam 1mg tab ORAL PRN (22:00)
[2017-01-12] MEDS ORDERED: LORazepam 1mg tab SL PRN (22:15)
[2017-01-12] MEDS: Dyna-Hex 2% Top Sol 2oz TOPIC SCH (22:28)
[2017-01-13 04:00] VITALS: BP 105/75
[2017-01-13 08:02] VITALS: BP 125/90
[2017-01-13] MEDS: Pantoprazole Inj IVP SCH (09:00)
[2017-01-13 11:49] VITALS: BP 103/65
--- NOTE | 2017-01-13 12:10 | General Progress Note ---
Progress Note Progress Note AVSS Tolerating BCIR low residue diet Abdomen soft, stoma stable Caio removes and steristrips applied sutures from RLQ incision - corner sutures removed, closure was under slight tension so will leave central sutures to be removed by PMD 01/17 or later Urine 1375 Ileostomy 955 Imp. Doing well Plan;remove PIC line ostomy appliance change monitor I&O discharge in Am if continues stable ORI SEVERINO Jan 13, 2017 12:10
[2017-01-13 15:59] VITALS: BP 121/77
[2017-01-13 20:17] VITALS: BP 137/93
[2017-01-14 04:00] VITALS: BP 119/80
--- NOTE | 2017-01-14 09:47 | General Progress Note ---
Progress Note Progress Note Doing well - ileostomy appliance staying on without leaks Discharged with full supplies ORI SEVERINO Jan 14, 2017 09:47
--- NOTE | 2017-01-14 16:20 | Cardiology Report ---
APPROVED REPORT EKG Measurement Heart [id number] MI [id number] Normal sinus rhythm Normal ECG
--- NOTE | 2017-01-19 13:12 | Discharge Summary ---
Discharge Summary Hospital Course Date of Admission Jan 04, 2017 at 09:33 Date of Discharge Jan 14, 2017 at 08:10 Admitting Diagnosis retracted Michelle ileostomy and recurring small bowel obstruction Reason for Hospitalization: elective surgery HPI Abdirahman Weber is a 56 year old male who was admitted on Jan 04, 2017 at 09: 33 for Ileostomy Retraction Procedures s/p 01/05/[address] Hawkins 1. Takedown, excision and relocation of ileostomy to the left side of abdomen 2. Enteroenterostomy. Hospital Course patient was admitted for elective surgery due to malfunctioning ileostomy and recurrent SBO planned surgery : revision of existing conventional ileostomy and release of recurring obstructions, versus creation of another Cadena Continent Ileostomy BCIR pouch preoperatively started on bowel prep, IVF and empiric IV abx, SQ heparin, PICC line placed s/p 01/05 surgery - 1. Takedown, excision and relocation of ileostomy to the left side of abdomen. 2. Enteroenterostomy. initially NPO IVF pain management with FULL SERVICE SUPERVISOR Goddard catheter urine and ileostomy output were clsoely monitored close monitoring of stoma for color, drainage, edema mobilized out of bed as tolerated IS while in the bed, encouraged to courtney developed ileus leucocytosis trending down was NPO for few days, until BS returned ileus slowly resolved started on CL diet on 01/10 with decrease in IVF, tolerated CL diet WOCN juan requested WOCN seen and evaluated the patietn, WOCN provided ostomy care and teaching, patient was able to do return demonstration with ostomy care on 01/11 diet changed to full liquid diet FULL SERVICE SUPERVISOR, Gdodard and IVF were discontinued patient tolerated FL diet 01/12 diet was changed to BCIR low residue diet, tolerated intake and output were closely monitored pain was controlled with oral analgesics stoma looked good, sufficient drainage, no leaking, no edema, 01/13 PICC line dc patient was dc 01/14 with full supplies of ostomy products follow up in surgeon office as outpatient, as advised by surgeon FINAL DIAGNOSIS 1. Ileostomy retraction and recurring episodes of small bowel obstruction 2. History of ulcerative colitis. 3. Status post multiple abdominal operations. 3.1. Proctocolectomy and Michelle ileostomy including resection of colon cancer in 1992. 3.2. Cadena continent ileostomy in 1994. 3.3. Repair of Cadena continent ileostomy slipped valve in 1994. 3.4. Repair of Cadena pouch stoma stricture in 1994. 3.5. Repair of Cadena pouch slipped valve in 1998. 3.6. Repair of Cadena pouch slipped valve in 2006. 3.7. Laparotomy with extensive lysis of adhesions and resection of failed Cadena pouch with segmental small bowel resection and creation of Michelle ileostomy January 2016 4. current s/p 01/05 -laparotomy with resection and relocation of Michelle ileostomy and enteroenterostomy Discharge Condition Upon Discharge: stable Discharge Disposition Patient was discharged home Discharge Diagnoses: Discharge Instructions Discharge Instructions Special Instructions I have been assigned to complete a D/C Summary on this account. I was not involved in the patient management Amanda Goel NP ([place]) Jan 19, 2017 13:12
== END 2017-01-14 08:10 | disposition home or self-care (01) | DRG 330 ==
LOC: 3E 09:33
PROC: 02HV33Z Insertion of Infusion Device into Superior Vena Cava, Percutaneous Approach (ICD-10-PCS; 2017-01-04)
PROC: 0D1B0Z4 Bypass Ileum to Cutaneous, Open Approach (ICD-10-PCS; principal; 2017-01-05 10:00)
PROC: 0DBB0ZZ Excision of Ileum, Open Approach (ICD-10-PCS; principal; 2017-01-05 10:00)
PROC: 0DNW0ZZ Release Peritoneum, Open Approach (ICD-10-PCS; principal; 2017-01-05 10:00)
PROC: 0D1B0ZB Bypass Ileum to Ileum, Open Approach (ICD-10-PCS; principal; 2017-01-05 10:00)
DX: K94.13 Enterostomy malfunction (principal); K56.7 Ileus, unspecified; K56.699 Other intestinal obstruction unspecified as to partial versus complete obstruction; Y83.3 Surgical operation with formation of external stoma as the cause of abnormal reaction of the patient, or of later complication, without mention of misadventure at the time of the procedure; Z85.068 Personal history of other malignant neoplasm of small intestine; Z88.0 Allergy status to penicillin; K66.0 Peritoneal adhesions (postprocedural) (postinfection)
CPT/HCPCS: 36415; 36569; 71010; 76937; 80048; 80053; 81001; 82607; 82728; 83540; 83550; 85007; 85025; 85610; 85730; 86850; 86900; 86901; 93005; 94003; 94150; J2250; J2405; J2765